=== PATIENT | female | born 1950 | race Caucasian/White ===

== ENCOUNTER 2018-03-23 10:53 | Outpatient (REF) | payer BC, SELFPAY ==
[2018-03-23 22:13] LABS: ALT 53 U/L (12-78); AST 25 U/L (15-37); Albumin 3.7 g/dL (3.4-5.0); Alkaline Phosphatase 172 U/L (46-116); Anion Gap 8.1 mmol/L (3-11); BUN 14 mg/dL (7-18); Bilirubin, Total 1.5 mg/dL (0.2-1.0); CO2 28.9 mmol/L (21.0-32.0); CREATININE 1.03 mg/dL (0.55-1.02); Calcium 8.8 mg/dL (8.5-10.1); Chloride 100 mmol/L (98-107); Cholesterol 240 mg/dL (50-200); Estimated GFR 53.45 (mL/min/1.73m2); Glucose 437 mg/dL (70-100); HDL Cholesterol 35 mg/dL (40-60); LDL CHOLESTEROL 116 mg/dL (<100); Potassium 3.6 mmol/L (3.5-5.1); Sodium 137 mmol/L (136-145); Total Protein 6.5 g/dL (6.4-8.2); Triglyceride 414 mg/dL (30-150)
== END 2018-03-23 11:13 ==
LOC: NCHCN 10:53
PROVIDERS: PCP Nurse Practitioner Family; Visit Provider Nurse Practitioner Family
DX: E11.9 Type 2 diabetes mellitus without complications (principal)
CPT/HCPCS: 80053; 80061; 83721

== ENCOUNTER 2018-03-23 12:11 | Outpatient (REF) | payer BC, SELFPAY ==
[2018-03-23 22:44] LABS: COMMENT (LAB VIEW ONLY) 100.35 mg/dL; Microalb ug/mg Crea 112.6 ug/mg Cr
== END 2018-03-23 12:31 ==
LOC: NCHCN 12:11
PROVIDERS: PCP Nurse Practitioner Family; Visit Provider Nurse Practitioner Family
DX: E11.9 Type 2 diabetes mellitus without complications (principal)
CPT/HCPCS: 82043; 82570

== ENCOUNTER 2018-05-04 10:47 | Outpatient (REF) | payer BC, SELFPAY ==
[2018-05-04 21:18] LABS: Anion Gap 9.6 mmol/L (3-11); BUN 15 mg/dL (7-18); CO2 28.4 mmol/L (21.0-32.0); CREATININE 0.92 mg/dL (0.55-1.02); Calcium 9.4 mg/dL (8.5-10.1); Chloride 103 mmol/L (98-107); Glucose 289 mg/dL (70-100); Potassium 4.1 mmol/L (3.5-5.1); Sodium 141 mmol/L (136-145)
== END 2018-05-04 11:07 ==
LOC: NCHCN 10:47
PROVIDERS: PCP Nurse Practitioner Family; Visit Provider Nurse Practitioner Family
DX: E11.9 Type 2 diabetes mellitus without complications (principal); I10 Essential (primary) hypertension
CPT/HCPCS: 80048

== ENCOUNTER 2018-05-18 09:46 | Outpatient (REF) | payer BC, SELFPAY ==
[2018-05-18 21:42] LABS: Anion Gap 9.6 mmol/L (3-11); BUN 17 mg/dL (7-18); CO2 29.4 mmol/L (21.0-32.0); Calcium 9.6 mg/dL (8.5-10.1); Chloride 100 mmol/L (98-107); Glucose 346 mg/dL (70-100); Potassium 3.9 mmol/L (3.5-5.1); Sodium 139 mmol/L (136-145)
== END 2018-05-18 10:06 ==
LOC: NCHCN 09:46
PROVIDERS: PCP Nurse Practitioner Family; Visit Provider Nurse Practitioner Family
DX: E11.9 Type 2 diabetes mellitus without complications (principal)
CPT/HCPCS: 80048

== ENCOUNTER 2018-06-05 15:45 | Outpatient (REF) | payer BC, SELFPAY ==
[2018-06-05 22:08] LABS: BUN 16 mg/dL (7-18); CREATININE 1.03 mg/dL (0.55-1.02); Calcium 9.2 mg/dL (8.5-10.1); Chloride 104 mmol/L (98-107); Estimated GFR 53.29 (mL/min/1.73m2); Glucose 157 mg/dL (70-100); Potassium 3.9 mmol/L (3.5-5.1); Sodium 142 mmol/L (136-145)
== END 2018-06-05 16:05 ==
LOC: NCHCN 15:45
PROVIDERS: PCP Nurse Practitioner Family; Visit Provider Nurse Practitioner Family
DX: I10 Essential (primary) hypertension (principal); E11.9 Type 2 diabetes mellitus without complications
CPT/HCPCS: 80048

== ENCOUNTER 2019-03-28 10:28 | Outpatient (REF) | payer BC, SELFPAY ==
[2019-03-28 21:53] LABS: BUN 18 mg/dL (7-18); CREATININE 1.09 mg/dL (0.55-1.02); Calcium 9.1 mg/dL (8.5-10.1); Calculated LDL 123 mg/dL; Chloride 102 mmol/L (98-107); Cholesterol 213 mg/dL (50-200); Estimated GFR 49.92 (mL/min/1.73m2); Glucose 179 mg/dL (70-100); HDL Cholesterol 41 mg/dL (40-60); Potassium 3.7 mmol/L (3.5-5.1); Sodium 141 mmol/L (136-145); Triglyceride 248 mg/dL (30-150)
== END 2019-03-28 10:48 ==
LOC: NCHCN 10:28
PROVIDERS: PCP Nurse Practitioner Family; Visit Provider Internal Medicine
DX: I10 Essential (primary) hypertension (principal); E11.9 Type 2 diabetes mellitus without complications
CPT/HCPCS: 80048; 80061

== ENCOUNTER 2019-06-15 07:34 | Outpatient (REF) | payer BC, SELFPAY ==
[2019-06-15 20:39] LABS: Hemoglobin A1C 7.5 % (4.5-6.2)
[2019-06-15 20:41] LABS: ALT 50 U/L (14-59); AST 23 U/L (15-37); Albumin 3.9 g/dL (3.4-5.0); Alkaline Phosphatase 125 U/L (46-116); Anion Gap 9.9 mmol/L (3-11); BUN 14 mg/dL (7-18); CO2 29.1 mmol/L (21.0-32.0); CREATININE 0.96 mg/dL (0.55-1.02); Calculated LDL 77 mg/dL; Chloride 101 mmol/L (98-107); Cholesterol 146 mg/dL (<200); Estimated GFR 57.63 (mL/min/1.73m2); Glucose 210 mg/dL (74-106); HDL Cholesterol 43 mg/dL (40-60); Potassium 3.5 mmol/L (3.5-5.1); Sodium 140 mmol/L (136-145); Total Protein 6.6 g/dL (6.4-8.2); Triglyceride 131 mg/dL (<150)
== END 2019-06-15 07:54 ==
LOC: NCHCN 07:34
PROVIDERS: PCP Nurse Practitioner Family; Visit Provider Family Medicine
DX: I10 Essential (primary) hypertension (principal); E11.9 Type 2 diabetes mellitus without complications; I67.9 Cerebrovascular disease, unspecified; M85.80 Other specified disorders of bone density and structure, unspecified site
CPT/HCPCS: 80053; 80061; 83036; 83970

== ENCOUNTER 2019-06-20 22:25 | Outpatient (REF) | payer BC, SELFPAY ==
[2019-06-20 22:10] LABS: TSH (W/Ref FT4) 2.36 uIU/mL (0.36-3.74)
[2019-06-22 11:58] LABS: Parathyroid Hormone,Intact 55 pg/mL (19-88)
== END 2019-06-20 22:45 ==
LOC: NCHCN 22:25
PROVIDERS: PCP Nurse Practitioner Family; Visit Provider Family Medicine
DX: E04.9 Nontoxic goiter, unspecified (principal); K30 Functional dyspepsia; M85.80 Other specified disorders of bone density and structure, unspecified site
CPT/HCPCS: 83970; 84443

== ENCOUNTER 2021-01-01 14:37 | Outpatient (REF) | payer BC, SELFPAY ==
[2021-01-01 21:50] LABS: ALT 29 U/L (14-59); AST 14 U/L (15-37); Albumin 3.8 g/dL (3.4-5.0); Alkaline Phosphatase 104 U/L (46-116); BUN 19 mg/dL (7-18); Bilirubin, Total 0.8 mg/dL (0.2-1.0); CREATININE 1.1 mg/dL (0.55-1.02); Calcium 9.4 mg/dL (8.5-10.1); Calculated LDL 60 mg/dL (<100); Chloride 104 mmol/L (98-107); Cholesterol 148 mg/dL (<200); Glucose 223 mg/dL (74-106); HDL Cholesterol 32 mg/dL (40-60); Potassium 3.8 mmol/L (3.5-5.1); Sodium 143 mmol/L (136-145); Total Protein 6.6 g/dL (6.4-8.2); Triglyceride 281 mg/dL (<150)
[2021-01-01 21:53] LABS: Hemoglobin A1C 7.8 % (<5.7)
[2021-01-02 08:56] LABS: HCT 40.4 % (36.0-46.0); HGB 13.2 g/dL (11.2-15.7); MCH 28.4 pg (27.0-33.0); MCHC 32.7 % (32.0-36.0); MCV 86.9 fL (80-95); MPV 11.2 fL (8.0-11.0); Platelet Count 296 10^3/uL (130-400); RBC 4.65 10^6/uL (3.93-5.22); RDW 12.8 % (11.7-14.6); RDW-SD 39.8 fL; WBC 7.87 10^3/uL (4.4-10.8)
[2021-01-02 09:11] LABS: TSH (W/Ref FT4) 1.34 uIU/mL (0.36-3.74)
== END 2021-01-01 14:38 | disposition home or self-care (01) ==
LOC: NCHCN 14:37
PROVIDERS: PCP Nurse Practitioner Family; Visit Provider Family Medicine
DX: E11.9 Type 2 diabetes mellitus without complications (principal); I10 Essential (primary) hypertension; Z00.00 Encounter for general adult medical examination without abnormal findings; R53.83 Other fatigue; C50.911 Malignant neoplasm of unspecified site of right female breast
CPT/HCPCS: 80053; 80061; 85027; 83036; 84443

== ENCOUNTER 2021-09-24 20:06 | Outpatient (REF) | payer BC, SELFPAY ==
[2021-09-24 22:19] LABS: Microalb ug/mg Crea 9.1 ug/mg Cr
== END 2021-09-24 20:07 | disposition home or self-care (01) ==
LOC: NCHCN 20:06
PROVIDERS: PCP Nurse Practitioner Family; Visit Provider Family Medicine
DX: E11.9 Type 2 diabetes mellitus without complications (principal)
CPT/HCPCS: 82043; 82570

== ENCOUNTER 2021-10-23 12:58 | Outpatient (REF) | payer BC, SELFPAY | END 2021-10-23 12:59 | disposition home or self-care (01) | LOC: NCHCN 12:58 | PROVIDERS: PCP Nurse Practitioner Family; Visit Provider Family Medicine | DX: R30.0 Dysuria (principal) | CPT/HCPCS: 87086 ==

== ENCOUNTER 2021-10-23 16:15 | Outpatient (REF) | payer BC, SELFPAY | END 2021-10-23 16:16 | disposition home or self-care (01) | LOC: NCHCN 16:15 | PROVIDERS: PCP Nurse Practitioner Family; Visit Provider Family Medicine ==

== ENCOUNTER 2022-02-11 03:40 | Outpatient (CLI) | payer BC, SELFPAY ==
--- NOTE | 2022-02-11 14:00 | NS.NUTBLAN_ITS ---
Kristine and attend Diabetes Self Management Education. She has had DM x 2 years. 5'0 172 lbs BMI: 33 DM meds: 500 mg metformin BID, 25mg Jardiance qd, 100 mg Januvia qd. A1C: 10.4%, up from 8.1% Elevation in A1C most likely due to not taking DM meds for several weeks after moving. She has restarted Dm meds x 1 month and checks fasting sugars daily. Reports fasting BS range from 200-231 mg/dl. Does not check BS later in day. Diet Recall: B: toast and eggs, L: sandwich, D: chop suey- reports eating small portions. Also eats snack such as berries, fruit, chips Session today focused on how to limit carb intake at meals to no more than 50 g per meal. Provided written material and meal plans and encouraged walking 1 mile daily. Unclear why fasting sugars remain so high despite compliance with Dm meds. Fasting BS elevations most likely due to high carb snack foods at night. Session also included placing a Dexcom G6 CGM for next 10 days to better learn how her blood sugars are affected by various foods. Will follow up in 10 days for data download and further needed education for optimal glycemic management.
== END 2022-02-11 03:41 | disposition home or self-care (01) ==
LOC: DS 03:47
PROVIDERS: PCP Family Medicine; Visit Provider Dietitian, Registered
DX: E11.9 Type 2 diabetes mellitus without complications (principal); Z79.84 Long term (current) use of oral hypoglycemic drugs; Z71.3 Dietary counseling and surveillance
CPT/HCPCS: 97802

== ENCOUNTER 2022-04-09 20:54 | Outpatient (REF) | payer BC, SELFPAY ==
[2022-04-09 21:30] LABS: Anion Gap 9.4 mmol/L (3-11); BUN 18 mg/dL (7-18); CO2 28.6 mmol/L (21.0-32.0); CREATININE 1.2 mg/dL (0.55-1.02); Calcium 9.6 mg/dL (8.5-10.1); Chloride 102 mmol/L (98-107); Estimated GFR 48.09 (mL/min/1.73m2); Glucose 241 mg/dL (74-106); Potassium 3.3 mmol/L (3.5-5.1); Sodium 140 mmol/L (136-145); TSH (W/Ref FT4) 2.12 uIU/mL (0.36-3.74)
[2022-04-12 06:06] LABS: Vitamin D 25 Total 49.9 ng/mL (30-100)
== END 2022-04-09 20:55 | disposition home or self-care (01) ==
LOC: NCHCN 20:54
PROVIDERS: PCP Nurse Practitioner Family; Visit Provider Family Medicine
DX: R53.83 Other fatigue (principal); E87.6 Hypokalemia
CPT/HCPCS: 80048; 82306; 84443

== ENCOUNTER 2022-10-21 12:56 | Outpatient (REF) | payer BC, SELFPAY ==
[2022-10-21 15:50] LABS: COMMENT (LAB VIEW ONLY) 108.28 mg/dL; Microalb ug/mg Crea 12.7 ug/mg Cr
== END 2022-10-21 12:57 | disposition home or self-care (01) ==
LOC: NCHCN 12:56
PROVIDERS: PCP Nurse Practitioner Family; Visit Provider Family Medicine
DX: E11.65 Type 2 diabetes mellitus with hyperglycemia (principal)
CPT/HCPCS: 82043; 82570

== ENCOUNTER 2023-01-28 15:24 | Outpatient (REF) | payer BC, SELFPAY ==
[2023-01-28 15:06] LABS: Hemoglobin A1C 8.8 % (<5.7)
[2023-01-28 15:14] LABS: ALT 35 U/L (14-59); AST 22 U/L (15-37); Albumin 3.8 g/dL (3.4-5.0); Alkaline Phosphatase 95 U/L (46-116); Anion Gap 11.9 mmol/L (3-11); BUN 12 mg/dL (7-18); Bilirubin, Total 0.9 mg/dL (0.2-1.0); CO2 27.1 mmol/L (21.0-32.0); CREATININE 1.2 mg/dL (0.55-1.02); Chloride 103 mmol/L (98-107); Cholesterol 199 mg/dL (<200); Estimated GFR 48.09 (mL/min/1.73m2); Glucose 292 mg/dL (74-106); HDL Cholesterol 39 mg/dL (40-60); Potassium 3.4 mmol/L (3.5-5.1); Sodium 142 mmol/L (136-145); Total Protein 7.1 g/dL (6.4-8.2); Triglyceride 405 mg/dL (<150)
[2023-01-28 15:30] LABS: LDL CHOLESTEROL 94 mg/dL (<100)
[2023-01-28 15:32] LABS: Vitamin D 25 Total 47.8 ng/mL (30-100)
== END 2023-01-28 15:25 | disposition home or self-care (01) ==
LOC: NCHCN 15:24
PROVIDERS: PCP Nurse Practitioner Family; Visit Provider Family Medicine
DX: Z00.00 Encounter for general adult medical examination without abnormal findings (principal); I10 Essential (primary) hypertension; E11.9 Type 2 diabetes mellitus without complications; E78.5 Hyperlipidemia, unspecified; M85.88 Other specified disorders of bone density and structure, other site
CPT/HCPCS: 80053; 80061; 82306; 83721; 83036

== ENCOUNTER 2023-10-14 16:40 | Outpatient (REF) | payer BC, SELFPAY ==
[2023-10-14 19:51] LABS: Microalb ug/mg Crea 13.3 ug/mg Cr
== END 2023-10-14 16:41 | disposition home or self-care (01) ==
LOC: NCHCN 16:40
PROVIDERS: PCP Nurse Practitioner Family; Visit Provider Family Medicine
DX: E11.9 Type 2 diabetes mellitus without complications (principal)
CPT/HCPCS: 82043; 82570

== ENCOUNTER 2024-07-02 13:44 | Outpatient (REF) | payer BC, SELFPAY ==
[2024-07-02 22:31] LABS: Abs Immature Grans 0.04 10^3/uL (0.0-0.06); Absolute Basophil Count 0.05 10^3/uL (0.0-0.2); Absolute Eosinophil Count 0.26 10^3/uL (0.0-0.7); Absolute Lymphocyte Count 1.97 10^3/uL (1.2-3.4); Absolute Monocyte Count 0.46 10^3/uL (0.1-0.8); Absolute Neutrophil Count 5.28 10^3/uL (1.2-6.7); Basophils % 0.6 %; Eosinophils % 3.2 %; HCT 43.4 % (36.0-46.0); HGB 13.8 g/dL (11.2-15.7); Immature Grans % 0.5 %; Lymphocytes % 24.4 %; MCH 27.8 pg (27.0-33.0); MCHC 31.8 % (32.0-36.0); MCV 88 fL (80-95); MPV 10.3 fL (8.0-11.0); Monocytes % 5.7 %; Neutrophils % 65.6 %; Platelet Count 297 10^3/uL (130-400); RBC 4.96 10^6/uL (3.93-5.22); RDW 13.5 % (11.7-14.6); RDW-SD 43.1 fL; WBC 8.06 10^3/uL (4.4-10.8)
[2024-07-02 22:33] LABS: ESR 17 mm/hr (0-30)
[2024-07-02 22:42] LABS: ALT 47 U/L (14-59); AST 26 U/L (15-37); Alkaline Phosphatase 111 U/L (46-116); BUN 12 mg/dL (7-18); Bilirubin, Total 1.05 mg/dL (0.2-1.0); CREATININE 1.1 mg/dL (0.55-1.02); Calcium 9.2 mg/dL (8.5-10.1); Chloride 104 mmol/L (98-107); Estimated GFR 52.73 (mL/min/1.73m2); Glucose 206 mg/dL (74-106); Potassium 3.8 mmol/L (3.5-5.1); Sodium 142 mmol/L (136-145); Total Protein 7.3 g/dL (6.4-8.2)
[2024-07-03 09:09] LABS: C-Reactive Protein 0.88 mg/dL (<or=0.5)
[2024-07-04 10:04] LABS: C4 Complement 32 mg/dL (13-39)
== END 2024-07-02 13:45 | disposition home or self-care (01) ==
LOC: NCHCN 13:44
PROVIDERS: Family Medicine; PCP Nurse Practitioner Family; Visit Provider Nurse Practitioner Family
DX: R22.0 Localized swelling, mass and lump, head (principal); K14.9 Disease of tongue, unspecified
CPT/HCPCS: 80053; 85652; 86141; 85025; 86140; 86160

== ENCOUNTER 2024-08-30 18:01 | Outpatient (REF) | payer BC, SELFPAY ==
[2024-08-30 23:36] LABS: COMMENT (LAB VIEW ONLY) 82.35 mg/dL; Microalb ug/mg Crea 27.8 ug/mg Cr
== END 2024-08-30 18:02 | disposition home or self-care (01) ==
LOC: NCHCN 18:01
PROVIDERS: PCP Nurse Practitioner Family; Visit Provider Family Medicine
DX: E11.9 Type 2 diabetes mellitus without complications (principal)
CPT/HCPCS: 82043; 82570

== ENCOUNTER 2025-01-08 14:14 | Outpatient (REF) | payer BC, SELFPAY ==
[2025-01-08 17:20] LABS: Anion Gap 6.1 mmol/L (3-11); BUN 15 mg/dL (7-18); CO2 29.9 mmol/L (21.0-32.0); CREATININE 1.1 mg/dL (0.55-1.02); Calcium 9.2 mg/dL (8.5-10.1); Chloride 105 mmol/L (98-107); Estimated GFR 52.73 (mL/min/1.73m2); Glucose 139 mg/dL (74-106); Potassium 3.8 mmol/L (3.5-5.1); Sodium 141 mmol/L (136-145)
== END 2025-01-08 14:15 | disposition home or self-care (01) ==
LOC: NCHCN 14:14
PROVIDERS: PCP Nurse Practitioner Family; Visit Provider Family Medicine
DX: R53.83 Other fatigue (principal)
CPT/HCPCS: 80048